=== PATIENT | female | born 1985 | race Caucasian/White ===

== ENCOUNTER 2017-10-14 05:27 | Day surgery (SDC) | payer OTHER ==
[2017-10-13 12:11] LABS: BILIRUBIN,URINE NEGATIVE (NEGATIVE); BLOOD, URINE 1+ (NEGATIVE); CLARITY/URINE SL HAZY (CLEAR); COLOR,URINE YELLOW (YELLOW); GLUCOSE,URINE NEGATIVE (NEGATIVE); KETONES,URINE NEGATIVE (NEGATIVE); LEUKOCYTE ESTERASE ,URINE NEGATIVE (NEGATIVE); NITRITE, URINE NEGATIVE (NEGATIVE); PH,URINE 6.5 (5.0-8.0); PROTEIN URINE NEGATIVE (NEGATIVE); UROBILINOGEN,URINE 0.2 (0.2-1.0)
[2017-10-13 12:17] LABS: BASOPHILS % (AUTO) 0.4 % (0.0-2.0); EOSINOPHILS # (AUTO) 0.1 K/uL (0.0-0.4); EOSINOPHILS % (AUTO) 1.1 % (0.0-4.0); HEMATOCRIT 39.7 % (36-48); HEMOGLOBIN 13.5 g/dL (12.0-16.0); LYMPHOCYTES # (AUTO) 1.3 K/uL (1.0-5.5); LYMPHOCYTES % (AUTO) 15.4 % (20.5-51.5); MEAN CORPUSCULAR HEMOGLOBIN 31 pg (27-31); MEAN CORPUSCULAR HGB CONC 34 % (32-36); MEAN CORPUSCULAR VOLUME 92 fL (79.0-98.0); MONOCYTES # (AUTO) 0.3 K/uL (0.0-1.0); MONOCYTES % (AUTO) 3.7 % (1.7-9.3); NEUTROPHILS % (AUTO) 79.4 % (40.0-70.0); PLATELET COUNT (AUTO) 314 K/uL (130-430); RED BLOOD CELL COUNT(AUTO) 4.32 MIL/uL (4.2-6.2); RED CELL DISTRIBUTION WIDTH 12.7 % (9.0-15.0); WHITE BLOOD COUNT (AUTO) 8.7 K/uL (4.8-10.8)
[2017-10-13 12:26] LABS: CALCIUM 9.3 mg/dL (8.4-11.0); CREATININE 0.69 mg/dL (0.55-1.30); POTASSIUM 3.5 mmol/L (3.5-5.1)
[2017-10-13 12:32] LABS: ALBUMIN 3.9 g/dL (3.4-4.8); TOTAL BILIRUBIN 0.4 mg/dL (0.0-1.0)
[2017-10-13 12:33] LABS: BACTERIA,URINE FEW /HPF (None Seen); MUCUS,URINE 1+ /LPF (None Seen); WBC,URINE 0-3 /HPF (0-3); YEAST,URINE None Seen /HPF (None Seen)
[~2017-10-14] VITALS: Ht 152.4 cm; Wt 66.2 kg
[2017-10-14] MEDS ORDERED: fentaNYL CITRATE/PF 100 MCG/2 ML AMP IVP ONE (07:30)
[2017-10-14] MEDS ORDERED: KETOROLAC TROMETHAMINE 30 MG VIAL IVP ONE (07:30)
[2017-10-14] MEDS ORDERED: ONDANSETRON HCL 4 MG/2 ML VIAL IVP ONE (07:30)
[2017-10-14] MEDS ORDERED: MIDAZOLAM HCL 5 MG/5 ML VIAL IVP ONE (07:30)
[2017-10-14] MEDS ORDERED: SEVOFLURANE 15 MIN GAS INH ONE (07:30)
[2017-10-14] MEDS ORDERED: LR 1,000 ML IV.SOLN IV ONE (07:30)
[2017-10-14] MEDS ORDERED: LR 1,000 ML IV SCH (08:01)
[2017-10-14] MEDS ORDERED: MORPHINE 4 MG/ML INJ. SYRINGE IVP PRN ×3 (08:15)
[2017-10-14] MEDS ORDERED: METOCLOPRAMIDE HCL 10 MG/2 ML VIAL IVP PRN (08:15)
[2017-10-14] MEDS ORDERED: OXYTOCIN 10 UNIT/ML VIAL ONE (08:24)
[2017-10-14] MEDS ORDERED: PROMETHAZINE HCL 25 MG/ML AMP IM PRN ×2 (08:30)
[2017-10-14] MEDS ORDERED: OXYTOCIN/0.9 % SODIUM CHLORIDE 1,000 ML IV SCH (08:30)
[2017-10-14] MEDS ORDERED: ONDANSETRON HCL 4 MG/2 ML VIAL IVP PRN (08:30)
[2017-10-14 09:06] VITALS: BP_SYST 106
== END 2017-10-14 11:00 | disposition home or self-care (01) ==
LOC: SMU 05:27 → SOR 05:27
PROVIDERS: ATTEND Obstetrics & Gynecology
DX: O02.1 Missed abortion (principal); Z79.899 Other long term (current) drug therapy
CPT/HCPCS: 36415; 59820; 80053; 81000; 85025; 86886; 86900; 86901; 88305; J1885; J2250; J2405; J2590; J3010; J7120

== ENCOUNTER 2021-01-05 11:13 | Emergency (ER) | payer OTHER ==
[~2021-01-05] VITALS: Ht 152.4 cm; Wt 63.0 kg
--- NOTE | 2021-01-05 11:15 | NUR ---
Patient to ER bed 7 to gown for evaluation. Side rails up. Report given to DILLON Garcia.
[2021-01-05 11:22] VITALS: BP_SYST 147
--- NOTE | 2021-01-05 11:25 | NUR ---
Pt came into ER with complaint of lower left sided sharp abdominal pain below the beltline / X4days. Pt had positive test on 01/02/21. Pt denies any bleeding. Pt abdomen is soft and nontender. Pt is AAOX4 speaking full sentences. Resting in gurney attached to monitor VSS. No distress noted at this time.
--- NOTE | 2021-01-05 11:30 | NUR ---
Urine collected and sent to lab.
--- NOTE | 2021-01-05 12:03 | NUR ---
ER at bedside examining patient.
--- NOTE | 2021-01-05 12:11 | NUR ---
Lab at bedside.
--- NOTE | 2021-01-05 12:27 | NUR ---
# 22 gauge angiocath placed to LAC. Use of asceptic technique. Opsite placed over site. Blood return noted. Blood for lab drawn from site. Flushed with 10 cc of normal saline. No evidence of infiltration noted. Patient tolerated well.
--- NOTE | 2021-01-05 12:57 | NUR ---
Patient transported to radiology via ambulatory, accompanied by tech.
--- NOTE | 2021-01-05 13:31 | NUR ---
Pt resting in gurney. Breathing is even and unlabored. No distress noted.
--- NOTE | 2021-01-05 13:58 | NUR ---
Dr. Chauhan speaking with pt.
[2021-01-05 14:12] VITALS: BP_SYST 147
--- NOTE | 2021-01-05 14:12 | NUR ---
Patient given written and verbal discharge instructions and verbalizes understanding. ER MD discussed with patient the results and treatment provided. Patient in stable condition. ID arm band removed. IV catheter removed intact and dressing applied, no active bleeding. . Patient educated on pain management and to follow up with PMD. Pain Scale 0/10. Opportunity for questions provided and answered. Medication side effect fact sheet provided.
== END 2021-01-05 14:12 | disposition home or self-care (01) ==
LOC: SED 11:13
DX: O20.0 Threatened abortion (principal); Z3A.01 Less than 8 weeks gestation of pregnancy
CPT/HCPCS: 36415; 76805-TC; 81025; 84702; 86901; 99284